=== PATIENT | female | born 1960 | race Caucasian/White ===

== ENCOUNTER 2017-08-15 19:14 | Observation (INO) ==
[2017-08-15] MEDS ORDERED: cefTRIAXone 1,000 MG in Water for inj. (sterile) 20 ML 10 ML IVP ONE (19:56)
[2017-08-15] MEDS ORDERED: Acetaminophen IV 1,000 MG/100 ML INFUS..BTL IVPB ONE (19:56)
[2017-08-15] MEDS ORDERED: 0.9 % Sodium Chloride 1,000 ML IVC ONE (19:58)
[2017-08-15 20:01] LABS: Bilirubin,Urine Negative (Negative); Blood,Urine Moderate (Negative); Clarity,Urine Turbid (Clear); Color,Urine Yellow (Yellow); Glucose,Urine (UA) Normal (Normal); Ketones,Urine Negative (Negative); Leukocyte Esterase,Urine Large (Negative); Nitrite,Urine Negative (Negative); Protein,Urine 100 mg/dL (Neg-Trace); Specific Gravity,Urine 1.017 (1.010-1.025); Urobilinogen,Urine Normal (Normal)
[2017-08-15 20:02] LABS: Bacteria,Urine Many per hpf (None-Few); Hyaline Casts,Urine None Seen per lpf (None-Few); RBC,Urine 30-50 per hpf (0-3); Squamous Epithelial Cell,Urine Many per lpf (None-Few); WBC,Urine TNTC per hpf (0-3)
[2017-08-15 20:22] LABS: Basophils % 0.1 %; Eosinophils % 0.1 %; Hemoglobin 13.9 g/dL (11.5-15.4); Immature Granulocytes % 0.5 % (0-4); Lymphocytes # 0.8 K/mcL (0.6-4.6); Lymphocytes % 4.7 %; Mean Corpuscular HGB Conc 33.1 g/dL (31.6-35.5); Mean Corpuscular Hemoglobin 30.8 pg (28.0-33.3); Mean Corpuscular Volume 92.9 fL (83.0-100.0); Mean Platelet Volume 10.5 fL (9.4-12.4); Monocytes # 1.3 K/mcL (0.0-1.3); Monocytes % 7.7 %; Neutrophils # 14.5 K/mcL (1.6-8.9); Platelet Count 279 K/mcL (140-400); Red Blood Count 4.52 M/mcL (3.82-4.97); Red Cell Distribution Width 12.8 % (11.5-14.5); Segmented Neutrophils % 86.9 %
[2017-08-15 20:42] LABS: Troponin I 0.03 ng/mL (< 0.04)
[2017-08-15 20:43] LABS: Alanine Aminotransferase 35 Units/L (7-52); Albumin 3.6 g/dL (3.5-5.7); Albumin/Globulin Ratio 0.8 (1.1-2.2); Alkaline Phosphatase 180 Units/L (34-104); Aspartate Amino Transferase 62 Units/L (13-39); BUN/Creatinine Ratio 26 (6-26); Bilirubin,Total 0.6 mg/dL (0.3-1.0); Blood Urea Nitrogen 29 mg/dL (6-20); Calcium 10.1 mg/dL (8.6-10.3); Carbon Dioxide 25 mEq/L (23-29); Chloride 91 mEq/L (98-107); Globulin 4.7 g/dL (2.4-3.5); Glucose 142 mg/dL (70-105); Lipase 14 Units/L (11-82); Osmolality,Calculated 276 (280-300); Potassium 3.4 mEq/L (3.5-5.1); Sodium 129 mEq/L (136-145); Total Protein 8.3 g/dL (6.4-8.9); eGFR For African Americans > 60 (> 60); eGFR For Non-African Americans 51 (> 60)
[2017-08-15] MEDS ORDERED: *HR* FentaNYL (PF) 100 MCG/2 ML VIAL IVP ONE (22:32)
[2017-08-15] MEDS: 0.9 % Sodium Chloride 1,000 ML IVC SCH (22:39)
--- NOTE | 2017-08-15 23:53 | Emergency Department Note ---
Disposition Clinical Impression: UTI (urinary tract infection) Qualifiers: Urinary tract infection type: site unspecified Hematuria presence: with hematuria Qualified Code(s): N39.0 - Urinary tract infection, site not specified ; R31.9 - Hematuria, unspecified; R31.9 - Hematuria, unspecified Disposition: Admitted As Inpatient Condition: Undetermined Referrals: Jessica Lenz MD [Primary Care Provider] - General Adult HPI - General Chief complaint: ED Nausea/Vomiting/Diarrhea Stated complaint: weakness/nausea Time Seen by Provider: 08/15/17 19:42 Source: patient Limitations: no limitations Nursing Notes Reviewed: Yes Vital Signs Reviewed: Yes - History of Present Illness HPI Narrative: 56-year-old female who presents with concerns for flank pain and urinary symptoms of burning and pain with urination. She has a history of having urinary tract infection. Symptoms started 2 days ago. She has no fever but reports chills. She has mild hypotension at triage. Non-peritoneal abdominal examination on arrival. General: No acute distress HEENT: Pupils equal and reactive to light, extraoccular muscle movement is normal, TMS are clear bilaterally. Heart: RRR, No murmor rub or gallop Lungs: lungs clear, no wheezing, rales or ronchi. ABD: SNT, there is mild cva tenderness bilaterally. Extremities: No cyanosis, clubbing or edema Neuro: CN 2-12 in tact, no focal deficit. strength 5/5. Medical decision making I do suspect clinically the patient has pyelonephritis given hypotension as well as urine sample suggesting underlying urinary tract infection. We will need to send urine for culture. Ceftriaxone was given. Blood cultures are pending. Lactate was normal. There was mild sludge in the gallbladder with slightly elevated AST and alkaline phosphatase. We will obtain right upper quadrant ultrasound to rule out gallbladder etiologies however I do suspect all her symptoms are due to urinary tract infection. Patient will be admitted for treatment of UTI. IV fluids were administered. I spent greater than 35 minutes of critical care time resuscitating this acutely ill patient suffering from hypotension and urinary tract infection. This was excluding billable procedures. Pain Scale: 6 - Related Data Allergies Allergy/AdvReac Type Severity Reaction Status Date / Time Sulfa (Sulfonamide AdvReac Nausea Verified 08/15/17 19:22 Antibiotics) All systems ED: reviewed and negative except as stated. 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 - Social History Smoking Status: Former smoker Smokeless Tobacco Status: No Alcohol use: Reports: none Drug use: Reports: marijuana Physical Exam - General Limitations: no limitations General appearance: alert, in no apparent distress Course Vital Signs Temperature 98.0 F 08/15/17 19:22 Pulse Rate 101 08/15/17 19:22 Respiratory Rate 16 08/15/17 19:22 Blood Pressure 88/58 08/15/17 19:22 O2 Sat by Pulse Oximetry 97 08/15/17 19:22 Temperature 98.0 F 08/15/17 19:22 Pulse Rate 72 08/15/17 23:41 Respiratory Rate 16 08/15/17 23:41 Blood Pressure 113/67 08/15/17 23:41 O2 Sat by Pulse Oximetry 99 08/15/17 23:41 Oxygen Delivery Oxygen Delivery Room Air Medical Decision Making - Lab Data Result diagrams: 08/15/17 19:43 08/15/17 19:43 Lab Results 08/15/17 08/15/17 08/15/17 Range/Units 19:43 19:43 19:48 WBC 16.7 H (4.3-11.1) K/mcL RBC 4.52 (3.82-4.97) M/mcL Hgb 13.9 (11.5-15.4) g/dL Hct 42.0 (35.3-44.9) % MCV 92.9 (83.0-100.0) fL MCH 30.8 (28.0-33.3) pg MCHC 33.1 (31.6-35.5) g/dL RDW 12.8 (11.5-14.5) % Plt Count 279 (140-400) K/mcL MPV 10.5 (9.4-12.4) fL Immature Gran % 0.5 (0-4) % Seg Neutrophils % 86.9 % Lymphocytes % 4.7 % Monocytes % 7.7 % Eosinophils % 0.1 % Basophils % 0.1 % Neutrophils # 14.5 H (1.6-8.9) K/mcL Lymphocytes # 0.8 (0.6-4.6) K/mcL Monocytes # 1.3 (0.0-1.3) K/mcL Eosinophils # 0.0 (0.0-0.6) K/mcL Basophils # 0.0 (0.0-0.2) K/mcL Sodium 129 L (136-145) mEq/L Potassium 3.4 L (3.5-5.1) mEq/L Chloride 91 L (98-107) mEq/L Carbon Dioxide 25 (23-29) mEq/L BUN 29 H (6-20) mg/dL Creatinine 1.11 (0.60-1.20) mg/dL Est GFR ( Amer) > 60 (> 60) Est GFR (Non-Af Amer) 51 L (> 60) BUN/Creatinine Ratio 26 (6-26) Glucose 142 H (70-105) mg/dL Calculated Osmolality 276 L (280-300) Lactic Acid (0.5-2.2) mmol/L Calcium 10.1 (8.6-10.3) mg/dL Total Bilirubin 0.6 (0.3-1.0) mg/dL AST 62 H (13-39) Units/L ALT 35 (7-52) Units/L Alkaline Phosphatase 180 H (34-104) Units/L Troponin I 0.03 (< 0.04) ng/mL Serum Total Protein 8.3 (6.4-8.9) g/dL Albumin 3.6 (3.5-5.7) g/dL Globulin 4.7 H (2.4-3.5) g/dL Albumin/Globulin Ratio 0.8 L (1.1-2.2) Lipase 14 (11-82) Units/L Urine Color Yellow (Yellow) Urine Clarity Turbid A (Clear) Urine pH 6.0 (5.0-8.0) pH Units Ur Specific [place] 1.017 (1.010-1.025) Urine Protein 100 H (Neg-Trace) mg/dL Urine Glucose (UA) Normal (Normal) mg/dL Urine Ketones Negative (Negative) mg/dL Urine Blood Moderate H (Negative) Urine Nitrite Negative (Negative) Urine Bilirubin Negative (Negative) Urine Urobilinogen Normal (Normal) mg/dL Ur Leukocyte Esterase Large H (Negative) Urine Microscopic RBC 30-50 H (0-3) per hpf Urine Microscopic WBC TNTC H (0-3) per hpf Ur Squamous Epith Cells Many H (None-Few) per lpf Urine Bacteria Many H (None-Few) per hpf Hyaline Casts None Seen (None-Few) per lpf Ur Culture Indicated? NO. (NO) 08/15/17 Range/Units 20:56 WBC (4.3-11.1) K/mcL RBC (3.82-4.97) M/mcL Hgb (11.5-15.4) g/dL Hct (35.3-44.9) % MCV (83.0-100.0) fL MCH (28.0-33.3) pg MCHC (31.6-35.5) g/dL RDW (11.5-14.5) % Plt Count (140-400) K/mcL MPV (9.4-12.4) fL Immature Gran % (0-4) % Seg Neutrophils % % Lymphocytes % % Monocytes % % Eosinophils % % Basophils % % Neutrophils # (1.6-8.9) K/mcL Lymphocytes # (0.6-4.6) K/mcL Monocytes # (0.0-1.3) K/mcL Eosinophils # (0.0-0.6) K/mcL Basophils # (0.0-0.2) K/mcL Sodium (136-145) mEq/L Potassium (3.5-5.1) mEq/L Chloride (98-107) mEq/L Carbon Dioxide (23-29) mEq/L BUN (6-20) mg/dL Creatinine (0.60-1.20) mg/dL Est GFR ( Amer) (> 60) Est GFR (Non-Af Amer) (> 60) BUN/Creatinine Ratio (6-26) Glucose (70-105) mg/dL Calculated Osmolality (280-300) Lactic Acid 1.6 (0.5-2.2) mmol/L Calcium (8.6-10.3) mg/dL Total Bilirubin (0.3-1.0) mg/dL AST (13-39) Units/L ALT (7-52) Units/L Alkaline Phosphatase (34-104) Units/L Troponin I (< 0.04) ng/mL Serum Total Protein (6.4-8.9) g/dL Albumin (3.5-5.7) g/dL Globulin (2.4-3.5) g/dL Albumin/Globulin Ratio (1.1-2.2) Lipase (11-82) Units/L Urine Color (Yellow) Urine Clarity (Clear) Urine pH (5.0-8.0) pH Units Ur Specific [place] (1.010-1.025) Urine Protein (Neg-Trace) mg/dL Urine Glucose (UA) (Normal) mg/dL Urine Ketones (Negative) mg/dL Urine Blood (Negative) Urine Nitrite (Negative) Urine Bilirubin (Negative) Urine Urobilinogen (Normal) mg/dL Ur Leukocyte Esterase (Negative) Urine Microscopic RBC (0-3) per hpf Urine Microscopic WBC (0-3) per hpf Ur Squamous Epith Cells (None-Few) per lpf Urine Bacteria (None-Few) per hpf Hyaline Casts (None-Few) per lpf Ur Culture Indicated? (NO)
--- NOTE | 2017-08-16 00:47 | Internal Med History&Physical ---
Date of Encounter: 08/16/17 Time of Encounter: 00:47 Assessment and Plan (1) UTI (urinary tract infection) Status: Acute - Abdominal pain and flank pain most likely secondary to urinary tract infection . Urine analysis is suggestive of UTI CT scan of the abdomen , Punctate nonobstructive lower pole right renal calculus. Gallbladder ultrasound revealed Gallbladder sludge without cholelithiasis or evidence for acute cholecystitis. PLAN: - NPO apart from meds - IVF, NS at 125 cc/hr x 2 L - EKG in AM - Urine C+S - Urology consult - CBCD, CMP in AM Qualifiers: Urinary tract infection type: site unspecified Hematuria presence: with hematuria Qualified Code(s): N39.0 - Urinary tract infection, site not specified; R31.9 - Hematuria, unspecified; R31.9 - Hematuria, unspecified (2) Hypokalemia Status: Resolved We will replace. (3) Depression Status: Chronic We will continue home medication Qualifiers: Depression Type: unspecified Qualified Code(s): F32.9 - Major depressive disorder, single episode, unspecified (4) DVT prophylaxis Status: Resolved We will place SDCs and start the patient on heparin 5000 twice a day Internal Medicine - H&P: HPI Chief complaint: Abdominal pain Admitted From: Home Plans for Post Hospital Care: Home History of present illness: Ms. Carrion is a 56 year old female with no significant past medical history except for depression and recurrent UTI who presented with abdominal pain and flank pain as well as urinary symptoms of burning and pain with urination. On presentation she was initially hypotensive which raised a concern of possible pyelonephritis, Urine analysis is suggestive of UTI , CT scan of the abdomen , Punctuate nonconstructive lower pole right renal calculus , Gallbladder ultrasound revealed Gallbladder sludge without cholelithiasis or evidence for acute cholecystitis. The patient was admitted for further evaluation and management of urinary tract infection. Past Med Surg Social Fam HX - Past Medical History Medical history: no medical history Psychiatric history: depression - Social History Smoking Status: Former smoker Smokeless Tobacco Status: No Alcohol use: none Drug use: marijuana Internal Medicine - H&P: Meds Gabapentin [Neurontin] 800 mg PO BID 08/16/17 [History] Ranitidine HCl [Zantac] 150 mg PO BID PRN 08/16/17 [History] Trazodone HCl 100 mg PO HS 08/16/17 [History] Cefdinir [Omnicef] 300 mg PO BID #8 capsule 08/18/17 [Rx] 3 Allergy/AdvReac Type Severity Reaction Status Date / Time Sulfa (Sulfonamide AdvReac Nausea Verified 08/15/17 19:22 Antibiotics) All Systems PM: A 10-system review of systems was performed and is negative for pertinent findings except as documented above in the HPI. - Constitutional Constitutional: no chills, no fever(s), no night sweats - Cardiovascular Cardiovascular ROS IM: no chest pain, no diaphoresis, no dyspnea, no lightheadedness, no palpitations, no syncope - Respiratory Respiratory: no cough, no dyspnea, no wheezing, no excessive phlegm production - Gastrointestinal Gastrointestinal: no abdominal pain, no diarrhea, no hematemesis, no hematochezia, no melena, no nausea, no vomiting - Genitourinary Genitourinary: flank pain - Neurological Neurological ROS: no confusion, no convulsions, no focal weakness, no numbness, no tingling, no tremor(s) - Constitutional Vitals: Temp Pulse Resp BP Pulse Ox 98.0 F 73 16 113/62 97 08/15/17 19:22 08/16/17 00:36 08/16/17 00:36 08/16/17 00:36 08/16/17 00:36 General appearance: Present: no acute distress - Head Head exam: Present: atraumatic, normocephalic - Eye Eye exam: Present: PERRL, conjuntiva pink, sclera anicteric Pupils: Present: PERRL - Neck Neck exam general surgery: Present: supple, trachea midline. Absent: lymphadenopathy - Respiratory Respiratory exam: Present: CTAB. Absent: accessory muscle use, rales, rhonchi, wheezes - Cardiovascular Cardiovascular exam: Present: RRR, +S1, +S2. Absent: diastolic murmur, gallop, rubs, systolic murmur - GI/Abdominal GI/Abdominal exam: Present: normal bowel sounds, soft, no peritoneal signs. Absent: distended, tenderness - Extremities Exam Extremities exam: Present: warm, radial pulses palpable and symmetrical. Absent : calf tenderness, cyanotic, pedal edema Internal Med - H&P Results - Labs CBC & Chem 7: 08/18/17 04:44 08/18/17 04:44
[2017-08-16] MEDS ORDERED: Ondansetron ODT 4 MG TAB.RAPDIS SL PRN (02:59)
[2017-08-16] MEDS ORDERED: Naloxone 0.4 MG/ML INJ IVP PRN (02:59)
[2017-08-16] MEDS ORDERED: Mag Hydrox/Al Hydrox/Simeth 30 ML UDC PO PRN (02:59)
[2017-08-16] MEDS: 0.9 % Sodium Chloride 1,000 ML IVC SCH ×4 (04:30→22:47)
[2017-08-16] MEDS: Acetaminophen 325 MG TABLET PO PRN ×2 (04:30→17:07)
[2017-08-16] MEDS: *HR* Heparin 5,000 UNIT/ML VIAL SQ SCH ×2 (05:56→18:24)
[2017-08-16 06:27] LABS: Bilirubin,Urine Negative (Negative); Blood,Urine Small (Negative); Clarity,Urine Cloudy (Clear); Color,Urine Yellow (Yellow); Glucose,Urine (UA) Normal (Normal); Ketones,Urine Negative (Negative); Leukocyte Esterase,Urine Moderate (Negative); Nitrite,Urine Negative (Negative); Protein,Urine 100 mg/dL (Neg-Trace); Specific Gravity,Urine 1.015 (1.010-1.025); Urobilinogen,Urine Normal (Normal)
[2017-08-16 06:29] LABS: Hyaline Casts,Urine None Seen per lpf (None-Few); Squamous Epithelial Cell,Urine Many per lpf (None-Few); WBC,Urine TNTC per hpf (0-3)
--- NOTE | 2017-08-16 06:54 | Urology - Consult Note ---
Date of Encounter: 08/16/17 Time of Encounter: 06:52 - Assessment and Plan (1) UTI (urinary tract infection) Current Visit: Yes Status: Acute Assessment and plan: I personally reviewed the CT images. The lower pole punctate renal calculi is not likely causing any symptoms. There is no signs of hydronephrosis or significant perirenal stranding. Her bladder is mostly collapsed but does have some nonspecific bladder wall thickening. No obvious source of her illness based on the CT scan. In addition, her urinalysis does have white blood cells and red blood cells which can indicate UTI, but there is also significant squamous cells which can indicate contamination. I submitted order to verify that the original urine was sent for culture as the parameters of the urinalysis did not reflex this order. There is a significant possibility her urine culture will be negative.. In the meantime continue broad-spectrum antibiotics because of her acute illness. If the patient does not improve with antibiotics and IV hydration would suggest contrast CAT scan. Qualifiers: Urinary tract infection type: site unspecified Hematuria presence: with hematuria Qualified Code(s): N39.0 - Urinary tract infection, site not specified; R31.9 - Hematuria, unspecified; R31.9 - Hematuria, unspecified Urology CN:HPI Consult date: 08/16/17 History of present illness: 56-year-old female. No significant urology history. Acute illness since Thursday which is included low back pain and subjective fever. Nausea without vomiting. Admitted because of a white cell count of 16,[address] scan revealed a punctate lower pole nonobstructing renal calculi. She describes low back pain. No upper back pain or flank discomfort. She has had dysuria and dark cloudy urine. No history of stones. Past Med Surg Social Fam HX - Past Medical History Medical history: no medical history Psychiatric history: depression - Social History Smoking Status: Former smoker Smokeless Tobacco Status: No Alcohol use: none Drug use: marijuana Medications and Allergies Gabapentin [Neurontin] 800 mg PO BID 08/16/17 [History] Ranitidine HCl [Zantac] 150 mg PO BID PRN 08/16/17 [History] Trazodone HCl 100 mg PO HS 08/16/17 [History] 3 Allergy/AdvReac Type Severity Reaction Status Date / Time Sulfa (Sulfonamide AdvReac Nausea Verified 08/15/17 19:22 Antibiotics) Review of Systems - Constitutional chills, fatigue, fever(s), malaise - EENT Nose, mouth and throat: no dizziness - Cardiovascular no chest pain - Respiratory no cough - Gastrointestinal abdominal pain, nausea - Genitourinary Genitourinary: no flank pain - Musculoskeletal back pain - Integumentary no erythema - Neurological no confusion - Psychiatric no anxiety - Hematologic/Lymphatic no easy bleeding - Allergic/Immunologic no throat swelling Exam Initial Vital Signs Temp Pulse Resp BP Pulse Ox 98.0 F 101 16 88/58 97 08/15/17 19:22 08/15/17 19:22 08/15/17 19:22 08/15/17 19:22 08/15/17 19:22 - General physical appearance Present: no distress, no pain, other (Sweating and appears ill) - Eyes Present: PERRL, conjunctiva is clear - ENT Present: normal nares - Neck Present: no masses, no lymphadenopathy - Respiratory Present: normal respiratory effort - Abdomen Abdomen: Present: soft, suprapubic tenderness. Absent: masses - Integumentary Present: no rash - Neurologic Present: normal coordination. Absent: disoriented, confused Urology Results - Labs 08/15/17 19:43 08/15/17 19:43 Abnormal lab results WBC 16.7 K/mcL (4.3-11.1) H 08/15/17 19:43 Neutrophils # 14.5 K/mcL (1.6-8.9) H 08/15/17 19:43 Sodium 129 mEq/L (136-145) L 08/15/17 19:43 Potassium 3.4 mEq/L (3.5-5.1) L 08/15/17 19:43 Chloride 91 mEq/L (98-107) L 08/15/17 19:43 BUN 29 mg/dL (6-20) H 08/15/17 19:43 Est GFR (Non-Af Amer) 51 (> 60) L 08/15/17 19:43 Glucose 142 mg/dL (70-105) H 08/15/17 19:43 POC Glucose 129 mg/dL (58-89) H 08/16/17 05:34 Calculated Osmolality 276 (280-300) L 08/15/17 19:43 AST 62 Units/L (13-39) H 08/15/17 19:43 Alkaline Phosphatase 180 Units/L (34-104) H 08/15/17 19:43 Globulin 4.7 g/dL (2.4-3.5) H 08/15/17 19:43 Albumin/Globulin Ratio 0.8 (1.1-2.2) L 08/15/17 19:43 Urine Clarity Cloudy (Clear) A 08/16/17 05:55 Urine Protein 100 mg/dL (Neg-Trace) H 08/16/17 05:55 Urine Blood Small (Negative) H 08/16/17 05:55 Ur Leukocyte Esterase Moderate (Negative) H 08/16/17 05:55 Urine Microscopic RBC 30-50 per hpf (0-3) H 08/15/17 19:48 Urine Microscopic WBC TNTC per hpf (0-3) H 08/15/17 19:48 Ur Squamous Epith Cells Many per lpf (None-Few) H 08/15/17 19:48 Urine Bacteria Many per hpf (None-Few) H 08/15/17 19:48 All other labs normal. Consult Discharge Plan - Plan Referrals: Jessica Lenz MD [Primary Care Provider] -
[2017-08-16] MEDS: Gabapentin 400 MG CAPSULE PO SCH ×2 (08:11→21:36)
[2017-08-16 08:27] LABS: Basophils % 0.1 %; Eosinophils % 0.1 %; Hematocrit 31.8 % (35.3-44.9); Immature Granulocytes % 0.8 % (0-4); Lymphocytes % 7.2 %; Mean Corpuscular HGB Conc 34.6 g/dL (31.6-35.5); Mean Corpuscular Hemoglobin 31.4 pg (28.0-33.3); Mean Corpuscular Volume 90.9 fL (83.0-100.0); Mean Platelet Volume 11.5 fL (9.4-12.4); Monocytes # 1.5 K/mcL (0.0-1.3); Monocytes % 10.4 %; Neutrophils # 11.6 K/mcL (1.6-8.9); Platelet Count 212 K/mcL (140-400); Red Cell Distribution Width 12.8 % (11.5-14.5); Segmented Neutrophils % 81.4 %
[2017-08-16 08:50] LABS: INR 1.2; Prothrombin Time 13.5 Seconds (9.4-12.1)
[2017-08-16 08:53] LABS: Activated Partial Thrombo Time 24.4 Seconds (26.0-36.0)
[2017-08-16 08:55] LABS: Alanine Aminotransferase 39 Units/L (7-52); Albumin 2.8 g/dL (3.5-5.7); Albumin/Globulin Ratio 0.9 (1.1-2.2); Alkaline Phosphatase 177 Units/L (34-104); Aspartate Amino Transferase 96 Units/L (13-39); BUN/Creatinine Ratio 28 (6-26); Bilirubin,Total 0.4 mg/dL (0.3-1.0); Blood Urea Nitrogen 21 mg/dL (6-20); Calcium 8.3 mg/dL (8.6-10.3); Carbon Dioxide 19 mEq/L (23-29); Chloride 106 mEq/L (98-107); Chol/HDL Ratio 7.8 (0-4.9); Cholesterol 86 mg/dL (< 200); Glucose 99 mg/dL (70-105); HDL Cholesterol 11 mg/dL (40-59); LDL Cholesterol,Calculated 42 mg/dL (0-99); Magnesium 2.1 mg/dL (1.6-2.6); Osmolality,Calculated 281 (280-300); Phosphorous 2.3 mg/dL (2.7-4.5); Potassium 3.4 mEq/L (3.5-5.1); Sodium 134 mEq/L (136-145); Total Protein 5.8 g/dL (6.4-8.9); Triglycerides 164 mg/dL (< 150); eGFR For African Americans > 60 (> 60); eGFR For Non-African Americans > 60 (> 60)
[2017-08-16 10:18] LABS: Bacteria,Urine Moderate per hpf (None-Few)
[2017-08-16] MEDS: traMADol 50 MG TABLET PO PRN (12:07)
[2017-08-16] MEDS ORDERED: Famotidine 20 MG TABLET PO PRN (14:30)
--- NOTE | 2017-08-16 14:54 | Event Note ---
Date of Encounter: 08/16/17 Time of Encounter: 14:43 S: Patient had no acute events overnight. Bladder pain and dysuria improved this AM. She is doing well and wants to eat. Tolerated liquids without issue. She denies fever, chills, nausea, or vomiting. She has no new complaints. O: Vitals - Temp 99.1 degrees F., HR 79, RR 15, BP 117/67, O2 sat 96% on RA HEENT - NCAT, PERRLA, EOMI, hearing grossly intact, oropharynx benign Resp - Normal WOB, CTAB, no W/R/R CV - RRR, normal S1 and S2, no M/R/G, no BLE edema GI - Soft, NT/ND, no masses, normal BS, no HSP Skin - Warm, dry, no rashes/lesions/ulcers Psych - Normal mood and affect, no signs of depression or anxiety A/P: 1) UTI/Non-Obstructive Renal Calculus - Improving clinically. Leukocytosis improved. Urology consulted; appreciate input. They are not planning any interventions at this time. Continue IV rocephin. Continue IVF. Follow up on urine culture. CT scan if worsening. Tylenol and ultram for pain control. Repeat labwork in AM.
[2017-08-16] MEDS: cefTRIAXone 1,000 MG in Water for inj. (sterile) 20 ML 10 ML IVP SCH (18:25)
[2017-08-16] MEDS: traZODone 50 MG TABLET PO SCH (21:36)
[2017-08-17] MEDS: *HR* Heparin 5,000 UNIT/ML VIAL SQ SCH ×2 (05:14→18:27)
[2017-08-17] MEDS: traMADol 50 MG TABLET PO PRN ×2 (05:23→13:31)
[2017-08-17 05:47] LABS: Basophils % 0.2 %; Eosinophils # 0.1 K/mcL (0.0-0.6); Eosinophils % 0.5 %; Hematocrit 31.6 % (35.3-44.9); Hemoglobin 10.6 g/dL (11.5-15.4); Immature Granulocytes % 0.9 % (0-4); Lymphocytes # 1.3 K/mcL (0.6-4.6); Lymphocytes % 11.1 %; Mean Corpuscular HGB Conc 33.5 g/dL (31.6-35.5); Mean Corpuscular Hemoglobin 31.3 pg (28.0-33.3); Mean Corpuscular Volume 93.2 fL (83.0-100.0); Monocytes # 1.1 K/mcL (0.0-1.3); Neutrophils # 8.8 K/mcL (1.6-8.9); Platelet Count 296 K/mcL (140-400); Red Blood Count 3.39 M/mcL (3.82-4.97); Red Cell Distribution Width 13.2 % (11.5-14.5); Segmented Neutrophils % 77.3 %
[2017-08-17 06:04] LABS: BUN/Creatinine Ratio 19 (6-26); Blood Urea Nitrogen 12 mg/dL (6-20); Calcium 8.4 mg/dL (8.6-10.3); Carbon Dioxide 20 mEq/L (23-29); Chloride 112 mEq/L (98-107); Glucose 145 mg/dL (70-105); Osmolality,Calculated 288 (280-300); Potassium 3.3 mEq/L (3.5-5.1); Sodium 138 mEq/L (136-145); eGFR For African Americans > 60 (> 60); eGFR For Non-African Americans > 60 (> 60)
[2017-08-17 06:12] LABS: Platelet Estimate Normal (Normal); Reactive Lymphocytes Present (Not Present)
[2017-08-17] MEDS: Gabapentin 400 MG CAPSULE PO SCH ×2 (08:28→21:33)
[2017-08-17] MEDS: Acetaminophen 325 MG TABLET PO PRN ×2 (08:34→15:45)
--- NOTE | 2017-08-17 08:44 | Internal Med Progress Note ---
Date of Encounter: 08/17/17 Time of Encounter: 08:42 - Assessment and plan (1) UTI (urinary tract infection) Current Visit: Yes Status: Acute Assessment and plan: Improving. WBC trending down. Still with moderate bilateral flank tenderness. Tolerating regular diet. Continue IV rocephin. Follow up on urine culture. Blood cultures no growth preliminary x 3. Continue Tylenol and ultram for pain control. Plan for discharge home tomorrow with PO antibiotics with continued improvement. Qualifiers: Urinary tract infection type: site unspecified Hematuria presence: with hematuria Qualified Code(s): N39.0 - Urinary tract infection, site not specified; R31.9 - Hematuria, unspecified; R31.9 - Hematuria, unspecified (2) Depression Current Visit: Yes Status: Chronic Assessment and plan: Continue home medications. Qualifiers: Qualified Code(s): F32.9 - Major depressive disorder, single episode, unspecified (3) Leukocytosis Current Visit: Yes Status: Acute Assessment and plan: Improved. Recheck CBC in AM. Qualifiers: Leukocytosis type: unspecified Qualified Code(s): D72.829 - Elevated white blood cell count, unspecified (4) Hypokalemia Current Visit: Yes Status: Acute Assessment and plan: K = 3.3. Give KCl 40 mEq PO once. Recheck BMP in AM. (5) DVT prophylaxis Current Visit: Yes Status: Acute Assessment and plan: Low risk. Continue SCDs. - Time Spent With Patient less than 15 minutes - Subjective Interval history: Patient had no acute events overnight. She feels better today. Still with some pain in bilateral flanks/lower back. She is tolerating regular diet. She denies fever, chills, SOB, nausea, or vomiting. She has no new complaints. - Constitutional Vitals: Temp Pulse Resp BP Pulse Ox 96.5 F L 76 14 104/65 96 08/17/17 07:24 08/17/17 07:24 08/17/17 07:24 08/17/17 07:24 08/17/17 07:24 General appearance: Present: cooperative, A&O X 3, pleasant, no acute distress, answers questions appropriately - Respiratory Respiratory exam: Present: CTAB. Absent: accessory muscle use, rales, rhonchi, wheezes Additional comments: Normal WOB - Cardiovascular Cardiovascular exam: Present: RRR, +S1, +S2. Absent: diastolic murmur, gallop, rubs, systolic murmur Additional comments: No BLE edema - GI/Abdominal GI/Abdominal exam: Present: normal bowel sounds, soft. Absent: distended, hepatomegaly, mass, splenomegaly, tenderness - Back Exam Back exam: Present: CVA tenderness (L), CVA tenderness (R) - Psychiatric Psychiatric exam: Present: normal affect, normal mood. Absent: anxious, depressed - Skin Skin exam: Present: dry, intact, warm. Absent: cyanosis, rash Internal Medicine: Result - Labs CBC & Chem 7: 08/17/17 05:12 08/17/17 05:12 Labs: Short CBC 08/16/17 08/17/17 Range/Units 07:50 05:12 WBC 14.2 H 11.4 H (4.3-11.1) K/mcL Hgb 11.0 L D 10.6 L (11.5-15.4) g/dL Hct 31.8 L 31.6 L (35.3-44.9) % Plt Count 212 296 (140-400) K/mcL Neutrophils # 11.6 H 8.8 (1.6-8.9) K/mcL BMP 08/16/17 08/17/17 07:50 05:12 Sodium 134 L 138 Potassium 3.4 L 3.3 L Chloride 106 112 H Carbon Dioxide 19 L 20 L BUN 21 H 12 Creatinine 0.74 0.64 Glucose 99 145 H Calcium 8.3 L 8.4 L Liver Function 08/16/17 Range/Units 07:50 Total Bilirubin 0.4 (0.3-1.0) mg/dL AST 96 H (13-39) Units/L ALT 39 (7-52) Units/L Alkaline Phosphatase 177 H (34-104) Units/L Albumin 2.8 L (3.5-5.7) g/dL - ABG Interpretation ABG results: PT/INR, D-dimer PT 13.5 Seconds (9.4-12.1) H 08/16/17 07:50 Consult Discharge Plan - Plan Referrals: Jessica Lenz MD [Primary Care Provider] -
--- NOTE | 2017-08-17 14:42 | Electrocardiograph Report ---
[address] [place], [place] [address] Test Date: 2017-08-15 Pat Name: Josie Carrion Department: 103 Room: 3A43 Gender: F Sap Consultant: TMRyne : 1960 Requested By: Roselyn Odom Order Number: [id number] Reading MD: Silvano Hoyos Measurements Intervals [place] Rate: 89 P: 76 [place]: 142 QRS: 87 QRSD: 90 T: 70 QT: 329 QTc: 376 Interpretive Statements SINUS RHYTHM LEFT ATRIAL ENLARGEMENT Electronically Signed On 08-17-2017 14:41:26 EDT by Silvano Hoyos
[2017-08-17] MEDS: cefTRIAXone 1,000 MG in Water for inj. (sterile) 20 ML 10 ML IVP SCH (18:25)
[2017-08-17] MEDS: traZODone 50 MG TABLET PO SCH (21:34)
[2017-08-18] MEDS: traMADol 50 MG TABLET PO PRN (04:45)
[2017-08-18] MEDS: *HR* Heparin 5,000 UNIT/ML VIAL SQ SCH (05:55)
[2017-08-18 05:58] LABS: Basophils % 0.3 %; Eosinophils # 0.1 K/mcL (0.0-0.6); Eosinophils % 1.2 %; Hematocrit 31.1 % (35.3-44.9); Hemoglobin 10.2 g/dL (11.5-15.4); Immature Granulocytes % 0.7 % (0-4); Lymphocytes # 1.8 K/mcL (0.6-4.6); Lymphocytes % 19.9 %; Mean Corpuscular HGB Conc 32.8 g/dL (31.6-35.5); Mean Corpuscular Volume 94.5 fL (83.0-100.0); Mean Platelet Volume 10.8 fL (9.4-12.4); Monocytes # 0.7 K/mcL (0.0-1.3); Neutrophils # 6.4 K/mcL (1.6-8.9); Platelet Count 377 K/mcL (140-400); Red Blood Count 3.29 M/mcL (3.82-4.97); Red Cell Distribution Width 13.5 % (11.5-14.5); Segmented Neutrophils % 69.9 %
[2017-08-18 06:09] LABS: BUN/Creatinine Ratio 13 (6-26); Blood Urea Nitrogen 8 mg/dL (6-20); Calcium 8.6 mg/dL (8.6-10.3); Carbon Dioxide 21 mEq/L (23-29); Chloride 111 mEq/L (98-107); Glucose 167 mg/dL (70-105); Osmolality,Calculated 290 (280-300); Potassium 3.4 mEq/L (3.5-5.1); Sodium 139 mEq/L (136-145); eGFR For African Americans > 60 (> 60); eGFR For Non-African Americans > 60 (> 60)
[2017-08-18 06:34] LABS: Platelet Estimate Normal (Normal)
[2017-08-18] MEDS: Gabapentin 400 MG CAPSULE PO SCH (08:45)
[2017-08-18 10:35] VITALS: BP 95/56
--- NOTE | 2017-08-18 13:04 | Discharge Summary ---
- NOTES TO OUTPATIENT PROVIDER Notes to Outpatient Provider: No new meds, treated for UTI in this admission, discharged on omnicef bid for 4 more days Date of Encounter: 08/18/17 Time of Encounter: 13:03 - Discharge Diagnosis (1) UTI (urinary tract infection) Priority: Primary Status: Acute Qualifiers: Urinary tract infection type: site unspecified Hematuria presence: with hematuria Qualified Code(s): N39.0 - Urinary tract infection, site not specified; R31.9 - Hematuria, unspecified; R31.9 - Hematuria, unspecified (2) Depression Priority: Secondary Status: Chronic Qualifiers: Depression Type: unspecified Qualified Code(s): F32.9 - Major depressive disorder, single episode, unspecified (3) DVT prophylaxis Priority: Secondary Status: Resolved (4) Leukocytosis Priority: Primary Status: Resolved Qualifiers: Leukocytosis type: unspecified Qualified Code(s): D72.829 - Elevated white blood cell count, unspecified (5) Hypokalemia Priority: Primary Status: Resolved Hospital course: Ms. Carrion is a 56 year old female with medical hx of depression , who was admitted to observation for UTI, associated with bilateral flank pain. She has been asymptomatic since being started on antibiotics, and is tolerating a regular diet. Blood culture yielded no growth. Urine culture with GNR, final sensitivities pending. CT scan of the abdomen , Punctate nonobstructive lower pole right renal calculus. Gallbladder ultrasound revealed Gallbladder sludge without cholelithiasis or evidence for acute cholecystitis. Urology was consulted for lower pole punctate calculi and made no intervention sicne there was no hydronephrosis or obstruction Patient was seen and evaluated this morning, and reports she has made significant improvement. Flank pain and leukocytosis has resolved. [facility] report showed she had not received Gabapentin since 02/2017 we will not provide scripts for same. Encouraged liberal fluid hydration, and tylenol prn for pain, Continue other home meds. Discharged on Omnicef 300mg BID, recommend to follow up with PCP. Urine culture is not finalized, we will follow and also encourage her PCP to follow up on the report. Plan of care discussed, verbalized understanding Discharge discussed with: patient, nurse, case management - Time Spent with Patient Total time spent providing and/or coordinating discharge services: Less than 30 minutes - Discharge Medications Prescriptions: Cefdinir [Omnicef] 300 mg PO BID #8 capsule Home Medications: Gabapentin [Neurontin] 800 mg PO BID 08/16/17 [History] Ranitidine HCl [Zantac] 150 mg PO BID PRN 08/16/17 [History] Trazodone HCl 100 mg PO HS 08/16/17 [History] Cefdinir [Omnicef] 300 mg PO BID #8 capsule 08/18/17 [Rx] Allergies/Adverse Reactions: 3 Allergy/AdvReac Type Severity Reaction Status Date / Time Sulfa (Sulfonamide AdvReac Nausea Verified 08/15/17 19:22 Antibiotics) Date of admission: 08/16/17 03:00 Primary care physician: Jessica Lenz, Consults: 08/16/17 04:13 Consult to Urology [CONS] Routine Consulting Provider: Urology Mercedes Reason for Consult: Punctate nonobstructive lower pole right renal calculus. Call Completed: No Discharging clinician: Fahad Sagastume Anticipated date of discharge: 08/18/17 - Constitutional Vitals: Temp Pulse Resp BP Pulse Ox 98.1 F 81 14 95/56 95 08/18/17 10:31 08/18/17 10:31 08/18/17 10:31 08/18/17 10:31 08/18/17 10:31 General appearance: Present: cooperative, A&O X 3, pleasant, no acute distress, answers questions appropriately - Head Head exam: Present: atraumatic, normocephalic - Eye Eye exam: Present: PERRL, conjuntiva pink, sclera anicteric Pupils: Present: PERRL - Neck Neck exam general surgery: Present: supple, trachea midline. Absent: lymphadenopathy - Respiratory Respiratory exam: Present: CTAB. Absent: accessory muscle use, rales, rhonchi, wheezes - Cardiovascular Cardiovascular exam: Present: RRR, +S1, +S2. Absent: diastolic murmur, gallop, rubs, systolic murmur - GI/Abdominal GI/Abdominal exam: Present: normal bowel sounds, soft, no peritoneal signs. Absent: distended, tenderness - Extremities Exam Extremities exam: Present: warm, radial pulses palpable and symmetrical. Absent : calf tenderness, cyanotic, pedal edema - Back Exam Back exam: Absent: CVA tenderness (L), CVA tenderness (R) - Neurological Exam Neurological exam: Present: alert, CN II-XII intact, oriented X3, no focal deficits. Absent: pronater drift, facial droop, speech deficit - Skin Skin exam: Present: dry, intact - Patient Status Disposition: Home, Self-Care Condition: Good Functional capacity at discharge: independent ambulation Overall status at discharge: patient is back to baseline - Discharge Instructions Follow Up With: Jessica Lenz MD [Primary Care Provider] - 08/25/17 9:40 am - Diet and Activity Activity: resume usual activities as tolerated Diet: advance to your usual diet - VTE Documentation of Mechanical Device: Intermittent pneumatic compression device
== END 2017-08-18 15:00 | disposition home or self-care (01) ==
LOC: EMEROO 19:14 → 3ANU 19:14 → SUATTDRO 08-16 03:00
PROVIDERS: ADMIT Internal Medicine; ATTEND Student in an Organized Health Care Education/Training Program